=== PATIENT | female | born 1930 | race Caucasian/White ===

== ENCOUNTER 2017-10-03 16:15 | Emergency (ER) | payer OTHER ==
[~2017-10-03] VITALS: Ht 149.9 cm; Wt 53.5 kg
[2017-10-03] MEDS ORDERED: AMLODIPINE BES2.5 MG PO (16:36)
[2017-10-03] MEDS ORDERED: SYNTHROID75 MCG PO (16:36)
[2017-10-03] MEDS ORDERED: TOPROL XL50 M1 PO (16:36)
[2017-10-03] MEDS ORDERED: PREDNISOLONE5 G1 PO (16:37)
[2017-10-04] MEDS ORDERED: DIOVAN320 MG (12:05)
== END 2017-10-03 19:19 | disposition home or self-care (01) ==
LOC: ER 16:15
DX: K59.09 Other constipation (principal); R10.84 Generalized abdominal pain; R50.9 Fever, unspecified

== ENCOUNTER 2017-10-04 11:31 | Inpatient (IN) | payer OTHER ==
[~2017-10-04] VITALS: Ht 180.3 cm; Wt 53.5 kg
[~2017-10-04 11:31] MED LIST: AMLODIPINE BES2.5 MG PO; PREDNISOLONE5 G1 PO; SYNTHROID75 MCG PO; TOPROL XL50 M1 PO
[2017-10-04] MEDS ORDERED: DIOVAN320 MG (12:05)
[2017-11-02] MEDS ORDERED: Intestinex CAP PO (14:58)
[2017-11-02] MEDS ORDERED: ULTRACET PO (14:58)
[2017-11-02] MEDS ORDERED: IMODIUM A-D2 MG PO (14:58)
== END 2017-11-02 17:24 | DRG 329 ==
LOC: ER 11:31 → SURH 10-05 07:48 → O/R 10-22 12:28 → ICU 10-22 22:23 → SURH 10-25 14:56
PROVIDERS: Surgery; Urology
PROC: 0W9J30Z Drainage of Pelvic Cavity with Drainage Device, Percutaneous Approach (ICD-10-PCS; 2017-10-05)
PROC: 3E0436Z Introduction of Nutritional Substance into Central Vein, Percutaneous Approach (ICD-10-PCS; 2017-10-06)
PROC: 02HV33Z Insertion of Infusion Device into Superior Vena Cava, Percutaneous Approach (ICD-10-PCS; 2017-10-06)
PROC: CT131ZZ Planar Nuclear Medicine Imaging of Kidneys, Ureters and Bladder using Technetium 99m (Tc-99m) (ICD-10-PCS; 2017-10-07)
PROC: BW21Y0Z Computerized Tomography (CT Scan) of Abdomen and Pelvis using Other Contrast, Unenhanced and Enhanced (ICD-10-PCS; 2017-10-12)
PROC: B246ZZZ Ultrasonography of Right and Left Heart (ICD-10-PCS; 2017-10-14)
PROC: 0D1B0Z4 Bypass Ileum to Cutaneous, Open Approach (ICD-10-PCS; 2017-10-21)
PROC: 0TN78ZZ Release Left Ureter, Via Natural or Artificial Opening Endoscopic (ICD-10-PCS; 2017-10-21)
PROC: 0TN68ZZ Release Right Ureter, Via Natural or Artificial Opening Endoscopic (ICD-10-PCS; 2017-10-21)
PROC: 0T788DZ Dilation of Bilateral Ureters with Intraluminal Device, Via Natural or Artificial Opening Endoscopic (ICD-10-PCS; 2017-10-21)
PROC: 0DJD8ZZ Inspection of Lower Intestinal Tract, Via Natural or Artificial Opening Endoscopic (ICD-10-PCS; 2017-10-21)
PROC: 0DTE0ZZ Resection of Large Intestine, Open Approach (ICD-10-PCS; principal; 2017-10-21 14:00)
PROC: 0DJD4ZZ Inspection of Lower Intestinal Tract, Percutaneous Endoscopic Approach (ICD-10-PCS; 2017-10-21 14:00)
PROC: 4A033R1 Measurement of Arterial Saturation, Peripheral, Percutaneous Approach (ICD-10-PCS; 2017-10-22)
PROC: 30233N1 Transfusion of Nonautologous Red Blood Cells into Peripheral Vein, Percutaneous Approach (ICD-10-PCS; 2017-10-23)
PROC: 8E0ZXY6 Isolation (ICD-10-PCS; 2017-10-25)
PROC: B54NZZZ Ultrasonography of Left Upper Extremity Veins (ICD-10-PCS; 2017-10-28)
PROC: B54PZZZ Ultrasonography of Bilateral Upper Extremity Veins (ICD-10-PCS; 2017-11-01)
DX: K57.20 Diverticulitis of large intestine with perforation and abscess without bleeding (principal); A41.9 Sepsis, unspecified organism; N13.39 Other hydronephrosis; E27.3 Drug-induced adrenocortical insufficiency; N39.0 Urinary tract infection, site not specified; B37.89 Other sites of candidiasis; K51.518 Left sided colitis with other complication; J98.11 Atelectasis; I11.9 Hypertensive heart disease without heart failure; M35.3 Polymyalgia rheumatica; E78.00 Pure hypercholesterolemia, unspecified; H91.8X3 Other specified hearing loss, bilateral; T38.0X5A Adverse effect of glucocorticoids and synthetic analogues, initial encounter; Y92.098 Other place in other non-institutional residence as the place of occurrence of the external cause; Z79.52 Long term (current) use of systemic steroids; E89.0 Postprocedural hypothyroidism; K42.9 Umbilical hernia without obstruction or gangrene; D64.89 Other specified anemias; N99.89 Other postprocedural complications and disorders of genitourinary system; B96.5 Pseudomonas (aeruginosa) (mallei) (pseudomallei) as the cause of diseases classified elsewhere; I80.8 Phlebitis and thrombophlebitis of other sites; B96.4 Proteus (mirabilis) (morganii) as the cause of diseases classified elsewhere; B96.29 Other Escherichia coli [E. coli] as the cause of diseases classified elsewhere; B96.1 Klebsiella pneumoniae [K. pneumoniae] as the cause of diseases classified elsewhere; B95.2 Enterococcus as the cause of diseases classified elsewhere; B96.7 Clostridium perfringens [C. perfringens] as the cause of diseases classified elsewhere; B96.89 Other specified bacterial agents as the cause of diseases classified elsewhere

== ENCOUNTER 2017-11-08 18:36 | Inpatient (IN) | payer OTHER ==
[~2017-11-08] VITALS: Ht 149.9 cm; Wt 53.5 kg
[~2017-11-08 18:36] MED LIST changes: +DIOVAN320 MG; +IMODIUM A-D2 MG PO; +Intestinex CAP PO; +ULTRACET PO
[2017-11-16] MEDS ORDERED: PYRIDOXINE HCL100 M1 PO (11:22)
[2017-11-16] MEDS ORDERED: DIOVAN320 MG PO (11:22)
[2017-11-16] MEDS ORDERED: Intestinex CAP PO (11:22)
[2017-11-16] MEDS ORDERED: FAMOTIDINE20 MG PO (11:22)
[2017-11-16] MEDS ORDERED: SYNTHROID100 MCG PO (11:22)
[2017-11-16] MEDS ORDERED: AMLODIPINE BES2.5 MG PO (11:22)
[2017-11-16] MEDS ORDERED: Neurin-Sl Tablet Sl SL (11:22)
[2017-11-16] MEDS ORDERED: TOPROL XL50 M1 PO (11:22)
[2017-11-16] MEDS ORDERED: IMODIUM A-D2 MG PO (11:22)
[2017-11-16] MEDS ORDERED: PREDNISOLONE5 G1 PO (11:22)
[2017-11-16] MEDS ORDERED: ZOLPIDEM TARTRAT5 MG PO (11:22)
[2017-11-16] MEDS ORDERED: INTEGRA F CAPS1 EACH PO (11:33)
== END 2017-11-16 14:44 | disposition home or self-care (01) | DRG 690 ==
LOC: ER 18:36 → SURH 20:03 → MEDJ 20:03 → SEC-K 20:03 → MEDJ 22:45 → SURH 11-12 17:06
PROVIDERS: Urology
PROC: BW4GZZZ Ultrasonography of Pelvic Region (ICD-10-PCS; 2017-11-09)
PROC: 8E0ZXY6 Isolation (ICD-10-PCS; 2017-11-09)
PROC: BT14ZZZ Fluoroscopy of Kidneys, Ureters and Bladder (ICD-10-PCS; 2017-11-12)
PROC: 0TP98DZ Removal of Intraluminal Device from Ureter, Via Natural or Artificial Opening Endoscopic (ICD-10-PCS; principal; 2017-11-12 08:45)
PROC: B54NZZZ Ultrasonography of Left Upper Extremity Veins (ICD-10-PCS; 2017-11-15)
DX: N39.0 Urinary tract infection, site not specified (principal); E27.3 Drug-induced adrenocortical insufficiency; Z16.24 Resistance to multiple antibiotics; M35.3 Polymyalgia rheumatica; I11.9 Hypertensive heart disease without heart failure; Z79.52 Long term (current) use of systemic steroids; E78.4 Other hyperlipidemia; E89.0 Postprocedural hypothyroidism; E07.81 Sick-euthyroid syndrome; T38.0X5A Adverse effect of glucocorticoids and synthetic analogues, initial encounter; Z93.2 Ileostomy status; B96.5 Pseudomonas (aeruginosa) (mallei) (pseudomallei) as the cause of diseases classified elsewhere; B95.7 Other staphylococcus as the cause of diseases classified elsewhere; N13.39 Other hydronephrosis

== ENCOUNTER 2017-12-24 15:17 | Emergency (ER) | payer OTHER ==
[~2017-12-24] VITALS: Ht 152.4 cm; Wt 47.6 kg
[~2017-12-24 15:17] MED LIST changes: +DIOVAN320 MG PO; +FAMOTIDINE20 MG PO; +INTEGRA F CAPS1 EACH PO; +Neurin-Sl Tablet Sl SL; +PYRIDOXINE HCL100 M1 PO; +SYNTHROID100 MCG PO; +ZOLPIDEM TARTRAT5 MG PO
== END 2017-12-24 19:44 | disposition home or self-care (01) ==
LOC: ER 15:17
DX: N18.9 Chronic kidney disease, unspecified (principal); I10 Essential (primary) hypertension

== ENCOUNTER 2018-01-24 10:14 | Outpatient (CLI) | payer OTHER | END 2018-01-24 10:19 | disposition home or self-care (01) | LOC: RX STUDY 10:14 | DX: K57.20 Diverticulitis of large intestine with perforation and abscess without bleeding (principal); R19.4 Change in bowel habit; R10.32 Left lower quadrant pain; K43.9 Ventral hernia without obstruction or gangrene ==

== ENCOUNTER 2018-03-03 09:00 | Inpatient (IN) | payer OTHER ==
[~2018-03-03] VITALS: Ht 152.4 cm; Wt 51.7 kg
[~2018-03-03 09:00] MED LIST changes: -BAYER CHEWABLE81 MG PO; -PECID PO
[2018-03-03] MEDS ORDERED: PECID PO (11:06)
[2018-03-03] MEDS ORDERED: BAYER CHEWABLE81 MG PO (11:07)
[2018-03-13] MEDS ORDERED: ULTRACET PO (14:05)
== END 2018-03-13 14:43 | disposition home or self-care (01) | DRG 330 ==
LOC: SURH 03-10 06:29 → O/R 03-10 06:29 → SURH 03-10 09:00 → MEDI 03-10 11:28 → SURH 03-10 14:00
PROVIDERS: Surgery
PROC: 4A12X4Z Monitoring of Cardiac Electrical Activity, External Approach (ICD-10-PCS; 2018-03-10)
PROC: 4A033R1 Measurement of Arterial Saturation, Peripheral, Percutaneous Approach (ICD-10-PCS; 2018-03-10)
PROC: 3E0F7GC Introduction of Other Therapeutic Substance into Respiratory Tract, Via Natural or Artificial Opening (ICD-10-PCS; 2018-03-10)
PROC: 0DQB4ZZ Repair Ileum, Percutaneous Endoscopic Approach (ICD-10-PCS; principal; 2018-03-10 14:00)
DX: K57.32 Diverticulitis of large intestine without perforation or abscess without bleeding (principal); E27.3 Drug-induced adrenocortical insufficiency; Z43.2 Encounter for attention to ileostomy; I11.9 Hypertensive heart disease without heart failure; E89.0 Postprocedural hypothyroidism; E78.00 Pure hypercholesterolemia, unspecified; M35.3 Polymyalgia rheumatica; Z79.52 Long term (current) use of systemic steroids; G47.33 Obstructive sleep apnea (adult) (pediatric); T38.0X5A Adverse effect of glucocorticoids and synthetic analogues, initial encounter

== ENCOUNTER → 2018-03-03 | Outpatient (CLI) | payer OTHER ==
[~2018-03-03] MED LIST changes: +BAYER CHEWABLE81 MG PO; +PECID PO
== END | disposition home or self-care (01) ==
LOC: NUCLEAR 09:38
DX: I82.602 Acute embolism and thrombosis of unspecified veins of left upper extremity (principal)